=== PATIENT | female | born 1965 | race Two or more races ===

== ENCOUNTER → 2024-06-22 | Outpatient (CLI) | payer OTHER, MEDICAID, SELFPAY ==
--- NOTE | 2024-06-22 10:50 | XR_ITS ---
Examination: Lumbar spine 3 views TECHNIQUE: AP lateral coned lateral lower lumbar spine 3 views Exam date and time: June 22, 2024 1107 hours Comparison December 05, 2011 INDICATIONS: Low back pain 15 years. FINDINGS: Grade 2 spondylolisthesis L5 on S1 Moderate to advanced degenerative disc disease at this level No lumbar fracture Mild lumbar spondylosis IMPRESSION: Grade 2 spondylolisthesis L5 on S1 Moderate to advanced degenerative disc disease at this level
--- NOTE | 2024-06-22 10:50 | XR_ITS ---
Examination: Thoracic spine 3 views Technique one AP lateral coned lateral upper dorsal spine 3 views Exam date and time: June 22, 2024 1056 hours INDICATIONS: Upper back pain 15 years FINDINGS: Moderate osteopenia Thoracic dextroscoliosis 8 degrees No thoracic fracture Mild diffuse thoracic disc narrowing Incidental note moderate degenerative disc disease C5-C6 IMPRESSION: Mild diffuse thoracic degenerative disc disease Moderate degenerative disc disease C5-C6
== END | disposition home or self-care (01) ==
PROVIDERS: PCP Family Medicine; Referring Provider Family Medicine; Visit Provider Family Medicine
DX: M51.34 Other intervertebral disc degeneration, thoracic region (principal); M50.322 Other cervical disc degeneration at C5-C6 level; M43.17 Spondylolisthesis, lumbosacral region; M51.379 Other intervertebral disc degeneration, lumbosacral region without mention of lumbar back pain or lower extremity pain
CPT/HCPCS: 72072; 72100

== ENCOUNTER → 2024-07-21 | Outpatient (CLI) | payer OTHER, MEDICAID, SELFPAY ==
--- NOTE | 2024-07-21 10:15 | XR_ITS ---
Examination: Screening digital mammography, bilateral Computer aided detection 3-D breast Tomosynthesis, bilateral Date and time of exam: 07/21/2024, 7:44 AM Comparisons: January 2008 Indications: Screening Technique: Nonmagnified MLO, CC views of the breasts to been obtained, reconstructed from 3-D Tomosynthesis images. R2 computer aided detection program utilized for evaluation of suspicious masses and/or abnormal calcifications. 3-D Tomosynthesis images obtained. Technologist: Findings: There are scattered areas of fibroglandular density. No evidence of abnormal masses or suspicious calcifications. Impression: BI-RADS category 1: Negative findings (within normal) Recommend 1 year follow-up mammogram
== END | disposition home or self-care (01) ==
PROVIDERS: PCP Family Medicine; Referring Provider Family Medicine; Visit Provider Family Medicine
DX: Z12.31 Encounter for screening mammogram for malignant neoplasm of breast (principal); R92.313 Mammographic fatty tissue density, bilateral breasts
CPT/HCPCS: 77063; 77067